=== PATIENT | male | born 1990 | race African-American/Black ===

== ENCOUNTER 2025-05-12 15:46 | Emergency (ER) | payer OTHER ==
[~2025-05-12] VITALS: Ht 188 cm; Wt 90.7 kg
[2025-05-12 16:11] VITALS: TEMP 98.3
[2025-05-12 16:32] LABS: BASO # 0.1 10^3/uL (0.0-0.2); BASO % 1.0 % (0.0-1.0); EOS # 0.4 10^3/uL (0.0-0.5); EOS % 6.9 % (0.0-3.0); LYMPH # 2.9 10^3/uL (1.5-5.0); LYMPH % 49.8 % (24.0-44.0); MONO # 0.5 10^3/uL (0.0-0.8); MONO % 9.3 % (2.0-8.0); NEUTROPHILS # 1.9 10^3/uL (1.5-8.5); NEUTROPHILS % 32.8 % (36.0-66.0); PLATELET COUNT, AUTOMATED 240 10^3/uL (150-450)
[2025-05-12 16:54] LABS: CK-MB VALUE MASS 4.9 NG/ML (<3.6)
[2025-05-12 17:02] LABS: ALT/SGPT 63 U/L (7.0-40); AST/SGOT 50 U/L (<34); CALCIUM LEVEL 9.7 MG/DL (8.5-10.1); CARBON DIOXIDE LEVEL 28 MMOL/L (20-31); CHLORIDE LEVEL 104 MMOL/L (98-107); CPK CREATINE PHOSPHOKINASE 868 U/L (46-171); CREATININE FOR GFR 0.91 MG/DL (0.70-1.30); GLOMERULAR FILTRATION RATE > 90.0 (>60); MB/CK RELATIVE INDEX 0.56 (< OR =4); POTASSIUM SERUM 3.7 MMOL/L (3.5-5.1); SODIUM LEVEL 141 MMOL/L (136-145)
[2025-05-12 17:58] LABS: CK-MB VALUE MASS 4.9 NG/ML (<3.6)
[2025-05-12] MEDS ORDERED: ISOVUE-370 76% 100 ML VIAL As Ordered ONE (18:01)
[2025-05-12 18:08] LABS: CPK CREATINE PHOSPHOKINASE 823.0 U/L (46-171); MB/CK RELATIVE INDEX 0.59 (< OR =4)
[2025-05-12] MEDS ORDERED: CARA1TAB6 PO (18:30)
[2025-05-12] MEDS ORDERED: PROT1TAB2 PO (18:30)
[2025-05-12 18:59] VITALS: BP 125/80; O2SAT 98
== END 2025-05-12 19:04 | disposition home or self-care (01) ==
LOC: EDBD 15:46 → M ED 15:46
DX: R07.9 Chest pain, unspecified (principal); Z79.899 Other long term (current) drug therapy
CPT/HCPCS: 36415; 71045; 71275; 80048; 80076; 82550; 82553; 83690; 84484; 85025; 85379; 93005; 93041; 94760; 99285; Q9967

== ENCOUNTER → 2025-07-01 | Outpatient (CLI) | payer OTHER ==
[~2025-07-01] MED LIST: ACET-907 PO; CARA1TAB6 PO; PROT1TAB2 PO
== END ==
LOC: M RAD 07:15
PROVIDERS: ATTEND Otolaryngology
DX: J33.0 Polyp of nasal cavity (principal)

== ENCOUNTER → 2025-09-09 | Outpatient (CLI) | payer OTHER ==
[~2025-09-09] MED LIST changes: +FLUTISP; +GARL200T2 PO; +GINK125C PO; +LORA-1041 PO; +MONT10TA97 PO; +MULTTAB61 PO; +NAPR-1405 PO; +PANT40TA29 PO; +SAW160CA22 PO; +SUCR1TAB56 PO; +SUMA50TA2
== END ==
LOC: M PLAIMG 09:39
PROVIDERS: ATTEND Internal Medicine
DX: M25.561 Pain in right knee (principal); M47.816 Spondylosis without myelopathy or radiculopathy, lumbar region; M48.061 Spinal stenosis, lumbar region without neurogenic claudication; S83.241A Other tear of medial meniscus, current injury, right knee, initial encounter; X58.XXXA Exposure to other specified factors, initial encounter; Y92.9 Unspecified place or not applicable; Y93.9 Activity, unspecified; Y99.9 Unspecified external cause status; M25.461 Effusion, right knee

== ENCOUNTER 2025-09-14 08:27 | Day surgery (SDC) | payer OTHER ==
[~2025-09-14] VITALS: Ht 188 cm; Wt 92.1 kg
[2025-09-14] MEDS ORDERED: LR 1,000 ML IV SCH ×2 (09:05→12:05)
[2025-09-14] MEDS ORDERED: LIDOCAINE 2% 100 MG/5 ML SDV (FOR ANES.) As Ordered ONE (09:17)
[2025-09-14] MEDS ORDERED: ONDANSETRON 4MG/2ML VIAL As Ordered ONE (09:17)
[2025-09-14] MEDS ORDERED: ROCURONIUM BROMIDE 50MG/5ML VIAL As Ordered ONE (09:17)
[2025-09-14] MEDS ORDERED: MIDAZOLAM INJ 2 MG/2 ML VIAL As Ordered ONE (09:17)
[2025-09-14] MEDS ORDERED: ACETAMINOPHEN 1000MG/100ML IV BAG As Ordered ONE (09:18)
[2025-09-14] MEDS ORDERED: dexAMETHasone 4 MG/ML 1 ML VIAL As Ordered ONE (09:18)
[2025-09-14] MEDS: SCOPOLAMINE 1MG TRANSDERMAL PATCH TOP ONE (10:28)
[2025-09-14] MEDS ORDERED: LACRILUBE (AKWA TEARS) OPHTH OINT 3.5 GM As Ordered ONE (11:08)
[2025-09-14] MEDS: COCAINE 4% 4 ML NASAL SOLUTION BTL As Ordered ONE (11:26)
[2025-09-14] MEDS: OXYMETAZOLINE 0.05% NASAL SPRAY As Ordered ONE (11:27)
[2025-09-14] MEDS: LIDOCAINE W/EPINEPHrine 1% 20 ML VIAL As Ordered ONE (11:30)
[2025-09-14] MEDS ORDERED: SUGAMMADEX SODIUM 500 MG/5 ML VIAL As Ordered ONE (11:44)
[2025-09-14] MEDS: HYDROMORPHONE HCL 0.5 MG/0.5 ML SYRINGE IV PRN (12:32)
[2025-09-14] MEDS: ONDANSETRON 4MG/2ML VIAL IV PRN (12:32)
[2025-09-14 15:28] VITALS: BP 134/80; TEMP 98.2; O2SAT 100
== END 2025-09-14 15:43 | disposition home or self-care (01) ==
LOC: M SDC 08:27
PROVIDERS: ATTEND Otolaryngology
DX: J32.8 Other chronic sinusitis (principal); J33.8 Other polyp of sinus
CPT/HCPCS: 31253; 31267; 61782; 88305; A6024; C9143; J0131; J1100; J1171; J2250; J2405; J2765; J3010